=== PATIENT | male | born 1995 | race Caucasian/White ===

== ENCOUNTER 2022-08-26 17:35 | Emergency (ER) | payer MEDICAID ==
[~2022-08-26] VITALS: Ht 175.3 cm; Wt 59.0 kg
[2022-08-26 17:36] VITALS: BP 121/87
[2022-08-26] MEDS ORDERED: IBUPROFEN 600 MG TAB PO ONE (18:20)
--- NOTE | 2022-08-26 18:31 | NUR ---
BILATERAL FEET GAUZE PADS APPLIED AND ROLLED WITH GAUZE. + CMS
[2022-08-26] MEDS ORDERED: IBUP-2213 PO (18:33)
--- NOTE | 2022-08-26 19:07 | NUR ---
DEN GUERRA MADE AWARE OF PT CONTINUED TACHYCARDIA, HR 135, STATED THAT PT IS OK TO DISCHARGE
== END 2022-08-26 19:16 | disposition home or self-care (01) ==
LOC: MED 17:35
DX: M79.671 Pain in right foot (principal); M79.672 Pain in left foot; F17.210 Nicotine dependence, cigarettes, uncomplicated; Z88.1 Allergy status to other antibiotic agents; Z79.899 Other long term (current) drug therapy
CPT/HCPCS: 99282